=== PATIENT | female | born 1960 | race Caucasian/White ===

== ENCOUNTER 2025-10-17 15:53 | Emergency (ER) | payer MEDICARE ==
[~2025-10-17] VITALS: Ht 154.9 cm; Wt 56.7 kg
[2025-10-17 16:55] LABS: PLATELET COUNT (AUTO) 197 K/uL (179-408); RED BLOOD CELL COUNT(AUTO) 4.87 MIL/uL (3.63-4.92); RED CELL DISTRIBUTION WIDTH 12.9 % (12.3-17.7); WHITE BLOOD COUNT (AUTO) 10.0 K/uL (3.8-11.8)
[2025-10-17 17:02] LABS: CREATININE 0.7 mg/dL (0.6-1.3); SODIUM SERUM 143 mmol/L (136-145); UREA NITROGEN, BLOOD 22 mg/dL (7-18)
[2025-10-17 17:08] LABS: ASPARTATE AMINOTRANSFERASE 11 U/L (15-37); TOTAL PROTEIN, SERUM 7.2 g/dL (6.4-8.2)
[2025-10-17 17:12] LABS: LACTIC ACID 2.2 mmol/L (0.4-2.0)
[2025-10-17] MEDS ORDERED: CEFTRIAXONE /D5W 50ML IVPB **ER PYXIS IV ONE (17:37)
[2025-10-17] MEDS ORDERED: AZITHROMYCIN 250 MG TABLET ONE (17:37)
[2025-10-17] MEDS: AZITHROMYCIN 250 MG TABLET PO ONE (17:40)
[2025-10-17] MEDS ORDERED: MAGNESIUM HYDROXIDE 30 ML LIQUID UDC PO PRN (17:45)
[2025-10-17] MEDS ORDERED: ACETAMINOPHEN 325 MG TABLET PO PRN (17:45)
[2025-10-17] MEDS ORDERED: INSULIN REGULAR, HUMAN 300 UNITS/3 ML VIAL SQ PRN (17:45)
[2025-10-17] MEDS ORDERED: ONDANSETRON 4 MG/2 ML VIAL IV PRN (17:45)
[2025-10-17] MEDS ORDERED: INSULIN REGULAR, HUMAN 1000 UNIT/10 ML VIAL SQ PRN (17:45)
[2025-10-17] MEDS ORDERED: REMEDY ESSENTIAL ZINC PASTE 113 GM TP PRN (17:45)
[2025-10-17] MEDS ORDERED: DEXTROSE 50% 50 ML DISP.SYRIN IV PRN (17:45)
[2025-10-17] MEDS: ENOXAPARIN SODIUM 40 MG/0.4 ML DISP.SYRIN SQ SCH (17:45)
[2025-10-17] MEDS ORDERED: ICOS1CAP PO (18:29)
[2025-10-17] MEDS ORDERED: EMPA10TA PO (18:29)
[2025-10-17] MEDS ORDERED: LOSA50TA39 PO (18:29)
[2025-10-17] MEDS ORDERED: METF-440 PO (18:29)
[2025-10-17] MEDS ORDERED: EZET10TA83 PO (18:29)
[2025-10-17] MEDS ORDERED: CARV6.252 PO (18:29)
[2025-10-17] MEDS: diphenhydrAMINE 50 MG/1 ML VIAL IV ONE (18:41)
[2025-10-17] MEDS: DEXAMETHASONE SOD PHOSPHATE 4 MG INJ IV ONE (18:41)
[2025-10-17 19:15] VITALS: BP 157/72; O2SAT 97
[2025-10-17] MEDS ORDERED: ENOXAPARIN SODIUM 40 MG/0.4 ML DISP.SYRIN SQ SCH (19:42)
[2025-10-17] MEDS ORDERED: BLOOD SUGAR DIAGNOSTIC 1 EACH STRIP VI SCH (21:00)
[2025-10-18] MEDS ORDERED: PANTOPRAZOLE SODIUM 40 MG TABLET.DR PO SCH (07:00)
[2025-10-18] MEDS ORDERED: AZITHROMYCIN 250 MG TABLET PO SCH (17:30)
== END 2025-10-17 20:19 | disposition home or self-care (01) ==
LOC: ER 15:53 → UNDOADMIN 19:26 → TELE3 19:26 → UNDODISIN 20:00 → ER 20:19
DX: A41.9 Sepsis, unspecified organism (principal); I11.0 Hypertensive heart disease with heart failure; E11.9 Type 2 diabetes mellitus without complications; I50.9 Heart failure, unspecified; E78.5 Hyperlipidemia, unspecified; Z79.899 Other long term (current) drug therapy; Z20.822 Contact with and (suspected) exposure to COVID-19
CPT/HCPCS: 99291; 96365; 71045; 87426; 87804 ×2; 80076; 80048; 83880; 85025; 84145; 85379; 85730; 87040 ×2; 84484 ×2; 36415; 93005; 83605 ×2; J0696; J1815; G0378; J1650; Q0144